=== PATIENT | male | born 1980 | race American Indian/Alaskan Native ===

== ENCOUNTER 2018-12-23 10:54 | Inpatient (IN) | payer MEDICARE ==
[2018-12-23] MEDS ORDERED: traMADol 50 MG TAB PO PRN (12:40)
[2018-12-24 05:58] LABS: Alanine Aminotransferase 15 units/L (7-56); Albumin 3.3 g/dL (3.9-5); BUN/Creatinine Ratio 16; Blood Urea Nitrogen 11 mg/dL (9-20); Calcium 8.8 mg/dL (8.4-10.2); Hemolysis Index 1
[2018-12-24 07:40] LABS: Hematocrit 36.9 % (35.5-45.6); Hemoglobin 12.4 gm/dl (11.8-15.2); Mean Corpuscular HGB Conc 34 % (32-34); Mean Corpuscular Volume 103 fl (84-94); Platelet Count 340 K/mm3 (140-440); Red Blood Count 3.57 M/mm3 (3.65-5.03); Red Cell Distribution Width 14.1 % (13.2-15.2)
[2018-12-24] MEDS: ASPIRIN EC 81 MG TAB PO SCH (08:39)
[2018-12-24] MEDS: allopurinoL 100 MG TAB PO SCH (08:39)
[2018-12-24] MEDS: ENOXAPARIN 40 MG/0.4 ML INJ SUB-Q SCH (08:39)
--- NOTE | 2018-12-24 11:55 | History and Physical Report ---
History of Present Illness Date: 12/24/18 Referring Facility: [facility] Referring physician: Pepe Sullivan MD Date of admission: 12/23/18 17:27 Chief Complaint: Congenital deformity of bilateral hips in a patient with Down syndrome status post bilateral hip pinning with advanced degenerative arthritis and now status post right total hip arthroplasty History of present illness: 38-year-old male with Down syndrome who has developmental dysplasia of the bilateral hips and underwent hip pinning procedure in the past. Due to the congenital defect along with degenerative joint disease patient developed worsening symptoms and has tried and failed other more conservative therapies to alleviate the pain and improve his functional ability to ambulate and perform ADLs. Outside XR showed severe degenerative disease of bilateral hips. He was evaluated for further surgical intervention and underwent a right total hip arthroplasty. He continues to have severe degenerative disease in the left hip which impairs his functional mobility and causes significant pain. Due to Down syndrome he is having a difficult time with following his posterior hip precautions as well as with retaining and following through with training. Previously he was going to an adult care center on a daily basis. Father states he has reduced his mobility and takes longer to walk places than he did in the past (likely due to pain). He was checking his GLU in the AM. Will obtain A1c and start monitoring / carb control diet if needed. Patient observed in therapy and appeared to be limited by pain. Due to communication issue and pain tolerance he has not asked for medication. Will schedule tramadol for pain control at breakfast and lunch. Will need to be persistent to ensure that he understands the correct form for exercises during therapy and pay close attention to cues of increased pain. Placement for acute rehab more appropriate than SNF due to increased need for monitoring patient and and increased amount of work for therapeutic gain which can be better accomplished in this setting than a lesser setting with a lower level of monitoring and staff. With continued care and pain control, we should be able to help him return closer to his premorbid condition and improve function. Past History Past Medical History: arthritis, other (Down syndrome, bilateral hip dysplasia, gout) Past Surgical History: Other (pinning of bilateral hips, right total hip arthroplasty) Social history: no significant social history, lives with family, full code. denies: smoking, alcohol abuse, prescription drug abuse Family history: diabetes, hypertension Medications and Allergies Allergies Allergy/AdvReac Type Severity Reaction Status Date / Time No Known Allergies Allergy Unverified 12/23/18 12:48 Home Medications Medication Instructions Recorded Confirmed Last Taken Type Allopurinol 100 mg PO DAILY 12/24/18 12/24/18 12/23/18 History Active Meds: Active Medications Allopurinol (Zyloprim) 100 mg PO QDAY [facility] Last Admin: 12/24/18 08:39 Dose: 100 mg Documented by: Aspirin (Halfprin Ec) 81 mg PO QDAY [facility] Last Admin: 12/24/18 08:39 Dose: 81 mg Documented by: Enoxaparin Sodium (Enoxaparin) 40 mg SUB-Q QDAY [facility] Last Admin: 12/24/18 08:39 Dose: 40 mg Documented by: Tramadol HCl (Ultram) 50 mg PO Q4H PRN PRN Reason: Pain, Moderate (4-6) Last Admin: 12/24/18 03:44 Dose: 50 mg Documented by: Review of Systems All systems: negative (ROS negative for 12 systems except as noted below with pertinent positives and negatives. Review of systems confirm with father in the room.) Constitutional: weight gain, fatigue Ears, nose, mouth and throat: no decreased hearing Cardiovascular: no chest pain, no high blood pressure Respiratory: no cough, no shortness of breath Gastrointestinal: no abdominal pain, no nausea, no vomiting, no diarrhea, no constipation Musculoskeletal: gait dysfunction, arthritis Integumentary: other (surgical wound), no rash, no pruritis, no redness Neurological: other (Down Syndrome) Exam - Exam Narrative exam: MUSCULOSKELETAL SPECIALTY EXAM CONSTITUTIONAL: Well developed, well nourished, appropriately groomed, Down syndrome, obese LYMPHATIC: No appreciable abnormalities palpable in neck EENT: EOMI. Oropharynx clear. Hearing intact to soft voice RESPIRATORY: Clear to auscultation bilaterally, no increased work of breathing CARDIOVASCULAR: Regular Rate/ Rhythm, no swelling, edema or tenderness in BUE or BLE. Pulses palpable in all extremities. All extremities warm. GI: + bowel sounds, soft, NTTP, nondistended. INTEGUMENTARY: Normal, no lesion, rash, masses or bruising noted in extremities. Surgical wound RLE MUSCULOSKELETAL: BUE and BLE normal without defect, crepitus, subluxation, effusion, arthritic changes or TTP. HIP arthritis with increased pain BUE 4+/5, good ROM, with normal tone. BLE 4+/5 good ROM, with normal tone NEURO: CN 2-12 grossly intact. Sensation intact in all extremities. Reflexes 2+ bilaterally at biceps, brachioradialis and patella. No clonus at ankles. Coordination intact in BUE. No tremor noted in 4 extremities. POSTURE and GAIT: Sitting posture good. Balance appears reasonable. Gait deferred until seen with therapy. PSYCH: Alert, decreased verbal communication secondary to Down syndrome, affect appears normal. Cognitive delay due to Down syndrome, decreased command following. - Constitutional Vitals: Vital Signs - 12hr 12/24/18 12/24/18 12/24/18 00:11 04:44 07:23 Temperature 37.2 C 36.9 C 36.5 C Pulse Rate 112 H 109 H 101 H Respiratory 17 17 18 Rate Blood Pressure 118/65 114/68 112/67 O2 Sat by Pulse 95 92 97 Oximetry - Labs CBC & Chem 7: 12/24/18 07:09 12/24/18 04:24 Labs: Laboratory Results - last 72 hr 12/24/18 12/24/18 04:24 07:09 WBC 6.8 RBC 3.57 L Hgb 12.4 Hct 36.9 MCV 103 H MCH 35 H MCHC 34 RDW 14.1 Plt Count 340 Sodium 138 Potassium 4.3 Chloride 100.9 Carbon Dioxide 23 Anion Gap 18 BUN 11 Creatinine 0.7 L Estimated GFR > 60 BUN/Creatinine Ratio 16 Glucose 139 H Calcium 8.8 Total Bilirubin 0.50 AST 22 ALT 15 Alkaline Phosphatase 50 Total Protein 7.8 Albumin 3.3 L Albumin/Globulin Ratio 0.7 Assessment and Plan Assessment and plan: Patient was assessed and evaluated for Acute Inpatient Rehab Unit. Due to the patients above-mentioned medical complexity, along with decreased functional mobility and self care, this patient continues to require and be appropriate for a comprehensive, multidisciplinary [id number] rehabilitation program. These needs cannot be met in an outpatient or other less intensive setting. The patient would continue to benefit from skilled therapy intervention for at least 3 hours per day, five days a week, with techniques specific to the needs of the patient to improve function, activities of daily living, and reintegration into the community. The patient continues to require: -- OT to improve ROM, self-care, and learn use of adaptive equipment -- PT to improve strength and balance, functional transfers, and ambulation with energy conservation techniques to improve functional mobility -- 24 hour RN to ensure and prevent skin breakdown, promote progressive independence while ensuring safety, ensure education regarding medications, and incorporation of the rehabilitation at the bedside -- 24 hour Wall Crane Operator to coordinate this interdisciplinary program, and to manage/prevent complications as a result of the patients medical comorbidities. -Plan of care by day 4 -Weekly team conferences With such a program, there is a reasonable certainty that the goals individualized for this patient can be achieved within the specified length of stay. 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 Has progressed and failed other more conservative efforts to control his pain as well as progressive degenerative changes and is to undergo staged total hip replacements starting with the right which is been done this hospitalization. Arthritis left hip: Continues and does cause pain. We'll continue pain control as well as therapy to improve functional transfers and ambulation until he can undergo second stage of bilateral total hip arthroplasty. Gout: Continue medication monitor for any signs of acute flareup and treat accordingly. s/p Right total hip replacement: Continue pain control and DVT prophylaxis. Monitor wounds for any signs of infection. Dressing changes as ordered and when necessary. Continue therapy to improve the ability to ambulate with existing arthritis and left hip and new total hip arthroplasty on right. Weightbearing as tolerated. Posterior hip precautions Downs Syndrome: Continue working with patient regarding medication issues. Condition complicates care and carry over. Patiently continue to guide patient to understand precautions and exercises to improve functional gain. Z73.6 ADL dysfunction: OT will work on improving ability to perform ADLs (including assistive devices) to increase independence and decrease caregiver burden and improve functional transfers and mobility training. R26.2 Difficulty walking: PT will work on gait training and proper use of assistive devices and advance as appropriate to use of stairs and outside ambulation on uneven surfaces. R26.81 Unsteadiness on feet: PT will work on improving static and dynamic si tting and standing balance as well as proper use of assistive devices to decrease risk of falls. R26.89 Abnormality of gait: PT will work to improve safety and efficiency of gait through neuromotor training and gait training along with instruction on proper use of assistive devices. M62.81 Muscle weakness: PT & OT will work on strengthening exercises to improve functional strength including mixture of closed and open kinetic chain exercises. R53.81 Debility: PT & OT will work on improving overall functional status to improve participation with ADLs, mobility and social involvement. R53.83 Fatigue: PT & OT will work on improving endurance through aerobic exercises and therapeutic activity while monitoring patients tolerance for activity and vital signs as needed. DVT ppx: lovenox x4wks Pain: Continue physical modalities in therapy and pain medications as needed to achieve functional pain control. Sleep: Monitor and address as needed. Bowel: Monitor and address as needed. Miralax prn Appetite: Monitor and address as needed. Discharge planning: Pending therapy progress and care plan meeting. Will continue discussion with therapy team, SW, patient and family. Restrictions/ Precautions: Falls, posterior hip precautions, cognitive delay secondary to Down syndrome WB status: Weightbearing as tolerated Functional Hx: ADLs: Independent Cognition: Independent Mobility: No AD Barriers to Discharge: Decreased mobility and ability to perform self care, balance deficits, weakness Estimated Length of Stay: 10-14 days Discharge Destination: Home with family POST ADMISSION PHYSICIAN EVALUATION I have examined the patient and find that functional status, medical condition and appropriateness for IRF admission are essentially unchanged from those described in the preadmission screening. Will monitor for worsening pain, functional decline, surgical site infection, DVT/PE, bowel and bladder complications and complications due to gout and electrolyte abnormalities. Will attempt to avoid occurrence of these issues or treat them if they present themselves.
[2018-12-24] MEDS: traMADol 50 MG TAB PO PRN ×2 (13:23→21:54)
[2018-12-24] MEDS ORDERED: POLYETHYLENE GLYCOL 3350 17 GM POWDER PO PRN (15:30)
[2018-12-25] MEDS: ASPIRIN EC 81 MG TAB PO SCH (08:41)
[2018-12-25] MEDS: traMADol 50 MG TAB PO SCH ×2 (08:41→13:19)
[2018-12-25] MEDS: ENOXAPARIN 40 MG/0.4 ML INJ SUB-Q SCH (08:42)
[2018-12-25] MEDS: allopurinoL 100 MG TAB PO SCH (08:42)
[2018-12-26] MEDS: traMADol 50 MG TAB PO SCH ×2 (09:40→15:25)
[2018-12-26] MEDS: ASPIRIN EC 81 MG TAB PO SCH (09:40)
[2018-12-26] MEDS: allopurinoL 100 MG TAB PO SCH (09:41)
[2018-12-26] MEDS: ENOXAPARIN 40 MG/0.4 ML INJ SUB-Q SCH (09:42)
--- NOTE | 2018-12-26 19:17 | IRU Plan of Care ---
Interdisciplinary Plan of Care - IP IRU INTERDISCIPLINARY PLAN: [facility] Inpatient Rehab Unit Plan of Care IRU Interdisciplinary Care Plan Start: 12/23/18 18:05 Freq: Admission then PRN Status: Active Protocol: Document 12/26/18 08:23 TH (Rec: 12/26/18 08:30 TH [id number]) Interdisciplinary Problem List Interdisciplinary Problem List Interdisciplinary Problem List Impaired Bathing/Grooming, Query Text:Answers will Trigger Problems Impaired Dressing,Impaired and Outcomes on Worklist. Mobility,Impaired Transfers, Impaired Toileting,Impaired Comprehension,Impaired Expression,Impaired Problem Solving,Impaired Memory,Pain Management,Knowledge Deficits, Impaired Skin/Tissue Integrity ,Impaired Social Interaction, Community Reintergration, Impaired Safety IRU Interdisciplinary Care Plan Therapy Services Therapy Services Will Include: Physical Therapy,Occupational Query Text:Patient will be seen for a Therapy minimum of 3 hours of daily therapy 5 out of 7 days a week. Therapy intensity may be adjusted within a 7 consecutive day period to effectively serve the individual needs of the patient. Treatment Frequency/Intensity/Duration Treatment Frequency 5x/week Treatment Intensity 3 hours per day Treatment Duration 14-18 days Problem Area: Eating/Swallowing Eating/Swallowing Outcomes Eating/Swallowing Interventions Problem Area: Bathing/Grooming Bathing/Grooming Outcomes Improve [place] w/ Grooming,Improve [place] w/ Bathing Bathing/Grooming Interventions ADL Training,Use of Assistive Devices,Therapeutic Exercise, Therapeutic Activity, Neuromuscular Re-Education, Balance Work,Activity Tolerance Work,Patient/ Caregiver Education Problem Area: Dressing Dressing Outcomes Improve [place] w/ UB Dressing,Improve [place] w/ LB Dressing Dressing Interventions ADL Training,Use of Assistive Devices,Neuromuscular Re- Education,Therapeutic Exercise ,Balance Work,Modalities, Patient/Caregiver Education Problem Area: Mobility Mobility Outcomes Improve [place] w/ Bed Mobility,Improve [place] w/ Ambulation,Improve [place] w/ Stairs/Curb, Improve [place] w/ Wheelchair Mobility Interventions Therapeutic Exercise, Neuromuscular Re-Ed.,Activity Tolerance Work,Modalities,Use of Assistive Devices,Patient/ Caregiver Education,Bed Mobility Work,Household Mobility Work Problem Area: Transfers Transfers Outcomes Improve [place] w/ Bed Transfers,Improve [place] w/ Toilet Transfers,Improve [place] w/ Tub/Shower Transfers,Improve [place] w/ Car Transfers Transfers Interventions Transfer Training,Therapeutic Exercise,Visual/Perceptual Training,Activity Tolerance Work,Use of Assistive Devices, Patient/Caregiver Education Problem Area: Bowel/Bladder Managment Bowel/Bladder Outcomes Bowel/Bladder Interventions Problem Area: Toileting Toileting Outcomes Improve [place] w/ Toileting Toileting Interventions ADL Training,Balance Work,Use of Assistive Devices,Patient/ Caregiver Education Problem Area: Nutrition Nutrition Outcomes Nutrition Interventions Problem Area: Comprehension Comprehension Outcomes Follow Commands Comprehension Interventions Use of Gestures,Patient/ Caregiver Education Problem Area: Expression Expression Outcomes Expression Interventions Problem Area: Problem Solving Problem Solving Outcomes Improve Problem Solving Problem Solving Interventions Safety Education,Patient/ Caregiver Education Problem Area: Memory Memory Outcomes Memory Interventions Problem Area: Pain Management Pain Management Outcomes Demonstrate/Verbalize Pain Strategies Pain Management Interventions Medication Management,Patient/ Caregiver Education Problem Area: Knowledge Deficits Knowledge Deficits Outcomes Knowledge Deficits Interventions Problem Area: Skin/Tissue Integrity Skin/Tissue Integrity Outcomes Exhibit Healing of Wound/ Incision Skin/Tissue Integrity Interventions Skin/Wound Care Problem Area: Social Interaction Social Interaction Outcomes Social Interaction Interventions Problem Area: Adjustment to Disability Adjustment to Disability Outcomes Adjustment to Disability Interventions Problem Area: Discharge Concerns Discharge Concerns Outcomes Discharge w/ Necessary Equipment,Have Home Health/ Outpatient Services Discharge Concerns Interventions Problem Area: Community Reintegration Community Reintegration Outcomes Community Reintegration Interventions Problem Area: Home Management Home Management Outcomes Improve [place] w/ Home Management Home Management Interventions Meal Preparation,Clothing Care ,Activity Tolerance Work, Leisure Skills Development, House Cleaning,Patient/ Caregiver Education Problem Area: Safety Safety Outcomes Provide Safe Environment, Perform Selfcare Safely, Demonstrate Good Safety w/ Transfers/Mobility Safety Interventions Identify Fall Risk,[place] Pt. to Environment,Reduce Environmental Hazards Problem Area: Medication Education Medication Education Outcomes Medication Education Interventions Problem Area: Diabetes Education Diabetes Education Outcomes Diabetes Education Interventions Problem Area: Oxygenation Oxygenation Outcomes Oxygenation Interventions Problem Area: Cardiovascular Cardiovascular Outcomes Cardiovascular Interventions Physician Only Medical Prognosis and Rehabilitation Potential (Completed by Physician) Patient has good prognosis and good rehab potential. Condition is complicated by continued L hip issues which will be addressed during a future surgical repair. Also complicate by Downs Syndrome and cognitive deficits. Will continue to push him to improve and regain function. This plan of care has been developed based on the findings from the pre- admission assessment, post admission physician evaluation, information gathered from the assessments from all therapy disciplines and other pertinent clinicians. The plan of care has been reviewed and discussed in collaboration with the interdisciplinary team. The plan of care will be reviewed and updated at least weekly.
[2018-12-27] MEDS: ASPIRIN EC 81 MG TAB PO SCH (08:22)
[2018-12-27] MEDS: traMADol 50 MG TAB PO SCH ×3 (08:22→23:03)
[2018-12-27] MEDS: allopurinoL 100 MG TAB PO SCH (08:23)
[2018-12-27] MEDS: ENOXAPARIN 40 MG/0.4 ML INJ SUB-Q SCH (08:23)
--- NOTE | 2018-12-27 09:31 | XRay Report ---
XR hips BILAT 2V w/pelvis INDICATION / CLINICAL INFORMATION: Hip pain after fall, recent hip surgery. COMPARISON: None available. FINDINGS: BONES/JOINT(S): No acute fracture or subluxation. There are postsurgical changes from previous right total hip arthroplasty and core decompression of the left proximal femur, presumably for osteonecrosi s. There is advanced DJD in the left with near-complete joint space loss superiorly, marginal ossifie d formation, and bone remodeling in the femoral head and acetabulum. SOFT TISSUES: The visualized right thigh demonstrate significant soft tissue edema without additional significant abnormality. ADDITIONAL FINDINGS: None. Signer Name: Madan Brooks MD Signed: 12/27/2018 9:27 AM Workstation Name: [id number]
--- NOTE | 2018-12-27 10:46 | Progress Note ---
Subjective Date of service: 12/27/18 Principal diagnosis: Congenital deformity of bilateral hips in a patient with Down syndrome stat Interval history: 38-year-old male with Down syndrome who has developmental dysplasia of the bilateral hips and underwent hip pinning procedure in the past. Due to the congenital defect along with degenerative joint disease patient developed worsening symptoms and has tried and failed other more conservative therapies to alleviate the pain and improve his functional ability to ambulate and perform ADLs. Outside XR showed severe degenerative disease of bilateral hips. He was evaluated for further surgical intervention and underwent a right total hip art hroplasty. He continues to have severe degenerative disease in the left hip which impairs his functional mobility and causes significant pain. Due to Down syndrome he is having a difficult time with following his posterior hip precautions as well as with retaining and following through with training. Previously he was going to an adult care center on a daily basis. Father states he has reduced his mobility and takes longer to walk places than he did in the past (likely due to pain). He was checking his GLU in the AM. Will obtain A1c and start monitoring / carb control diet if needed. Patient observed in therapy and appeared to be limited by pain. Due to communication issue and pain t olerance he has not asked for medication. Will schedule tramadol for pain control at breakfast and lunch. Will need to be persistent to ensure that he understands the correct form for exercises during therapy and pay close attention to cues of increased pain. Placement for acute rehab more appropriate than SNF due to increased need for monitoring patient and and increased amount of work for therapeutic gain which can be better accomplished in this setting than a lesser setting with a lower level of monitoring and staff. With continued care and pain control, we should be able to help him return closer to his premorbid condition and improve function. Patient is participating at times in therapy and making slow progress. Taking rest breaks as needed. -BM. Denies pain, palpitations, dyspnea, cough, N/V, weakness. Patient does have pain which is evident by watching the appearance of grimaces on his face. Was notified by nursing early this morning that the patient did not sleep well all weekend. Also informed that family was not with the patient at all times as we had initially been legibly. Apparently the patient is not participating as well as we would like with therapy but we will continue to see what kind of progress we can make over the next couple of days. I was informed the patient ended up not technically falling but was lowered to the ground by nursing. Obtained x-rays of the hips just to ensure that there was no damage done. Hips images as well as reports have been reviewed and no displacement of hardware seen. I am seeing issues with the when necessary medicationsthey apparently are not being given even though they are needed because the patient is unable to ask for them. K some point patient has not had a bowel movement during his time with us however he has not been given a single dose of MiraLAX. At this point I will change medications to scheduled with hold orders as well. And also order something to help the patient sleep. Reminded nursing that we absolutely need to watch the patient carefully and anytime he is in the bed and a chair are the wheelchair would need to have a alarm set so that we will know if he is attempting to get up. All records, vitals, labs and medications were reviewed. No other issues per patient, nursing or therapy. Objective - Exam Narrative Exam: MUSCULOSKELETAL SPECIALTY EXAM CONSTITUTIONAL: Well developed, well nourished, appropriately groomed, Down syndrome, obese EENT: EOMI. Hearing intact to soft voice RESPIRATORY: Clear to auscultation bilaterally, no increased work of breathing CARDIOVASCULAR: Regular Rate/ Rhythm, no swelling, edema or tenderness in BUE or BLE. All extremities warm. GI: + bowel sounds, soft, NTTP, nondistended. INTEGUMENTARY: Normal, no lesion, rash, masses or bruising noted in extremities. Surgical wound RLE MUSCULOSKELETAL: BUE and BLE normal without defect, crepitus, subluxation, effusion, arthritic changes or TTP. HIP arthritis with increased pain BUE 4+/5, good ROM, with normal tone. BLE 4+/5 good ROM, with normal tone NEURO: CN 2-12 grossly intact. Sensation intact in all extremities. No tremor noted in 4 extremities. POSTURE and GAIT: Sitting posture good. Balance appears reasonable. Gait deferred until seen with therapy. PSYCH: Alert, decreased verbal communication secondary to Down syndrome, affect appears normal. Cognitive delay due to Down syndrome, decreased command following. - Constitutional Vitals: Vital Signs - 12hr 12/26/18 12/26/18 12/27/18 23:36 23:42 05:07 Temperature 37.1 C Pulse Rate 110 H 72 124 H Respiratory 17 Rate Blood Pressure 114/58 Blood Pressure [Right] O2 Sat by Pulse 92 100 93 Oximetry 12/27/18 12/27/18 07:00 07:22 Temperature 36.3 C L 36.3 C L Pulse Rate 114 H 121 H Respiratory 16 16 Rate Blood Pressure 112/64 Blood Pressure 112/64 [Right] O2 Sat by Pulse 96 93 Oximetry - Allied health notes Allied health notes reviewed: nursing, PT, OT FIMS assessment as documented by PT/OT/ST: Locomotion- walk/wheelchair Ambulation Distance 17 - Labs CBC & Chem 7: 12/24/18 07:09 12/24/18 04:24 Labs: Laboratory Results - last 72 hr 12/25/18 12/25/18 06:28 21:45 POC Glucose 130 H Hemoglobin A1c 6.2 H Assessment and Plan 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 Has progressed and failed other more conservative efforts to control his pain as well as progressive degenerative changes and is to undergo staged total hip replacements starting with the right which is been done this hospitalization. Arthritis left hip: Continues and does cause pain. We'll continue pain control as well as therapy to improve functional transfers and ambulation until he can undergo second stage of bilateral total hip arthroplasty. Gout: Continue medication monitor for any signs of acute flareup and treat accordingly. s/p Right total hip replacement: Continue pain control and DVT prophylaxis. Monitor wounds for any signs of infection. Dressing changes as ordered and when necessary. Continue therapy to improve the ability to ambulate with existing arthritis and left hip and new total hip arthroplasty on right. Weightbearing as tolerated. Posterior hip precautions Downs Syndrome: Continue working with patient regarding medication issues. Condition complicates care and carry over. Patiently continue to guide patient to understand precautions and exercises to improve functional gain. Z73.6 ADL dysfunction: OT will work on improving ability to perform ADLs (including assistive devices) to increase independence and decrease caregiver burden and improve functional transfers and mobility training. R26.2 Difficulty walking: PT will work on gait training and proper use of assistive devices and advance as appropriate to use of stairs and outside ambulation on uneven surfaces. R26.81 Unsteadiness on feet: PT will work on improving static and dynamic sit ting and standing balance as well as proper use of assistive devices to decrease risk of falls. R26.89 Abnormality of gait: PT will work to improve safety and efficiency of gait through neuromotor training and gait training along with instruction on proper use of assistive devices. M62.81 Muscle weakness: PT & OT will work on strengthening exercises to improve functional strength including mixture of closed and open kinetic chain exercises. R53.81 Debility: PT & OT will work on improving overall functional status to improve participation with ADLs, mobility and social involvement. R53.83 Fatigue: PT & OT will work on improving endurance through aerobic exercises and therapeutic activity while monitoring patients tolerance for activity and vital signs as needed. DVT ppx: lovenox x4wks Pain: Continue physical modalities in therapy and pain medications as needed to achieve functional pain control. Change scheduled dose to 3 times a day Sleep: Monitor and address as needed. Schedule trazodone Bowel: Monitor and address as needed. Schedule Miralax with appropriate hold order Appetite: Monitor and address as needed. Discharge planning: Pending therapy progress and care plan meeting. Will continue discussion with therapy team, SW, patient and family. Restrictions/ Precautions: Falls, posterior hip precautions, cognitive delay secondary to Down syndrome WB status: Weightbearing as tolerated Functional Hx: ADLs: Independent Cognition: Independent Mobility: No AD Barriers to Discharge: Decreased mobility and ability to perform self care, balance deficits, weakness Estimated Length of Stay: 10-14 days Discharge Destination: Home with family
[2018-12-27] MEDS: POLYETHYLENE GLYCOL 3350 17 GM POWDER PO SCH (14:21)
[2018-12-27] MEDS: traZODone 50 MG TAB PO SCH (23:03)
[2018-12-28] MEDS: allopurinoL 100 MG TAB PO SCH (08:33)
[2018-12-28] MEDS: traMADol 50 MG TAB PO SCH ×3 (08:33→21:24)
[2018-12-28] MEDS: ASPIRIN EC 81 MG TAB PO SCH (08:33)
[2018-12-28] MEDS: POLYETHYLENE GLYCOL 3350 17 GM POWDER PO SCH (08:33)
[2018-12-28] MEDS: ENOXAPARIN 40 MG/0.4 ML INJ SUB-Q SCH (08:34)
--- NOTE | 2018-12-28 15:41 | Progress Note ---
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 Due to the congenital defect along with degenerative joint disease patient developed worsening symptoms and has tried and failed other more conservative therapies to alleviate the pain and improve his functional ability to ambulate and perform ADLs. Outside XR showed severe degenerative disease of bilateral hips. He was evaluated for further surgical intervention and underwent a right total hip art hroplasty. He continues to have severe degenerative disease in the left hip which impairs his functional mobility and causes significant pain. Due to Down syndrome he is having a difficult time with following his posterior hip precautions as well as with retaining and following through with training. Previously he was going to an adult care center on a daily basis. Father states he has reduced his mobility and takes longer to walk places than he did in the past (likely due to pain). He was checking his GLU in the AM. Will obtain A1c and start monitoring / carb control diet if needed. Patient observed in therapy and appeared to be limited by pain. Due to communication issue and pain t olerance he has not asked for medication. Will schedule tramadol for pain control at breakfast and lunch. Will need to be persistent to ensure that he understands the correct form for exercises during therapy and pay close attention to cues of increased pain. Placement for acute rehab more appropriate than SNF due to increased need for monitoring patient and and increased amount of work for therapeutic gain which can be better accomplished in this setting than a lesser setting with a lower level of monitoring and staff. With continued care and pain control, we should be able to help him return closer to his premorbid condition and improve function. Patient is participating at times in therapy and making slow progress. Taking rest breaks as needed. -BM. Denies pain, palpitations, dyspnea, cough, N/V, weakness. Patient does have pain which is evident by watching the appearance of grimaces on his face but he denies it. Participation a little better today. Discussed isses with mother who was in room. Patient refusing to get into bed and remains in recliner. Reminded nursing that we absolutely need to watch the patient carefully and anytime he is in the bed and a chair are the wheelchair would need to have a alarm set so that we will know if he is attempting to get up. All records, vitals, labs and medications were reviewed. No other issues per patient, nursing or therapy. Objective - Exam Narrative Exam: MUSCULOSKELETAL SPECIALTY EXAM CONSTITUTIONAL: Well developed, well nourished, appropriately groomed, Down syndrome, obese EENT: EOMI. Hearing intact to soft voice RESPIRATORY: Clear to auscultation bilaterally, no increased work of breathing CARDIOVASCULAR: Regular Rate/ Rhythm, no swelling, edema or tenderness in BUE or BLE. All extremities warm. GI: + bowel sounds, soft, NTTP, nondistended. INTEGUMENTARY: Normal, no lesion, rash, masses or bruising noted in extremities. Surgical wound RLE MUSCULOSKELETAL: BUE and BLE normal without defect, crepitus, subluxation, effusion, arthritic changes or TTP. HIP arthritis with increased pain BUE 4+/5, good ROM, with normal tone. BLE 4+/5 good ROM, with normal tone NEURO: CN 2-12 grossly intact. Sensation intact in all extremities. No tremor noted in 4 extremities. POSTURE and GAIT: Sitting posture good. Balance appears reasonable. Gait deferred until seen with therapy. PSYCH: Alert, decreased verbal communication secondary to Down syndrome, affect appears normal. Cognitive delay due to Down syndrome, decreased command following. 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 Has progressed and failed other more conservative efforts to control his pain as well as progressive degenerative changes and is to undergo staged total hip replacements starting with the right which is been done this hospitalization. Arthritis left hip: Continues and does cause pain. We'll continue pain control as well as therapy to improve functional transfers and ambulation until he can undergo second stage of bilateral total hip arthroplasty. Gout: Continue medication monitor for any signs of acute flareup and treat accordingly. s/p Right total hip replacement: Continue pain control and DVT prophylaxis. Monitor wounds for any signs of infection. Dressing changes as ordered and when necessary. Continue therapy to improve the ability to ambulate with existing arthritis and left hip and new total hip arthroplasty on right. Weightbearing as tolerated. Posterior hip precautions Downs Syndrome: Continue working with patient regarding medication issues. Condition complicates care and carry over. Patiently continue to guide patient to understand precautions and exercises to improve functional gain. Z73.6 ADL dysfunction: OT will work on improving ability to perform ADLs (including assistive devices) to increase independence and decrease caregiver burden and improve functional transfers and mobility training. R26.2 Difficulty walking: PT will work on gait training and proper use of assistive devices and advance as appropriate to use of stairs and outside ambulation on uneven surfaces. R26.81 Unsteadiness on feet: PT will work on improving static and dynamic sitting and standing balance as well as proper use of assistive devices to decrease risk of falls. R26.89 Abnormality of gait: PT will work to improve safety and efficiency of gait through neuromotor training and gait training along with instruction on proper use of assistive devices. M62.81 Muscle weakness: PT & OT will work on strengthening exercises to improve functional strength including mixture of closed and open kinetic chain exercises. R53.81 Debility: PT & OT will work on improving overall functional status to improve participation with ADLs, mobility and social involvement. R53.83 Fatigue: PT & OT will work on improving endurance through aerobic exercises and therapeutic activity while monitoring patients tolerance for activity and vital signs as needed. DVT ppx: lovenox x4wks Pain: Continue physical modalities in therapy and pain medications as needed to achieve functional pain control. Change scheduled dose to 3 times a day Sleep: Monitor and address as needed. Schedule trazodone Bowel: Monitor and address as needed. Schedule Miralax with appropriate hold order Appetite: Monitor and address as needed. Discharge planning: Pending therapy progress and care plan meeting. Will continue discussion with therapy team, SW, patient and family. Restrictions/ Precautions: Falls, posterior hip precautions, cognitive delay secondary to Down syndrome WB status: Weightbearing as tolerated Functional Hx: ADLs: Independent Cognition: Independent Mobility: No AD Barriers to Discharge: Decreased mobility and ability to perform self care, balance deficits, weakness Estimated Length of Stay: 10-14 days Discharge Destination: Home with family
[2018-12-28] MEDS: traZODone 50 MG TAB PO SCH (21:25)
[2018-12-29 05:38] LABS: Hematocrit 35.1 % (35.5-45.6); Hemoglobin 11.5 gm/dl (11.8-15.2); Mean Corpuscular HGB Conc 33 % (32-34); Mean Corpuscular Volume 102 fl (84-94); Platelet Count 460 K/mm3 (140-440); Red Blood Count 3.43 M/mm3 (3.65-5.03); Red Cell Distribution Width 14.1 % (13.2-15.2)
[2018-12-29 05:50] LABS: BUN/Creatinine Ratio 16; Blood Urea Nitrogen 11 mg/dL (9-20); Calcium 8.6 mg/dL (8.4-10.2); Hemolysis Index 2
--- NOTE | 2018-12-29 07:50 | Progress Note ---
Subjective Date of service: 12/29/18 Principal diagnosis: Congenital deformity of bilateral hips in a patient with Down syndrome Interval history: 38-year-old male with Down syndrome who has developmental dysplasia of the bilateral hips and underwent hip pinning procedure in the past. Due to the congenital defect along with degenerative joint disease patient developed worsening symptoms and has tried and failed other more conservative therapies to alleviate the pain and improve his functional ability to ambulate and perform ADLs. Outside XR showed severe degenerative disease of bilateral hips. He was evaluated for further surgical intervention and underwent a right total hip arthroplasty. He continues to have severe degenerative disease in the left hip which impairs his functional mobility and causes significant pain. Due to Down syndrome he is having a difficult time with following his posterior hip precautions as well as with retaining and following through with training. Previously he was going to an adult care center on a daily basis. Father states he has reduced his mobility and takes longer to walk places than he did in the past (likely due to pain). He was checking his GLU in the AM. Will obtain A1c and start monitoring / carb control diet if needed. Patient observed in therapy and appeared to be limited by pain. Due to communication issue and pain mir ance he has not asked for medication. Will schedule tramadol for pain control at breakfast and lunch. Will need to be persistent to ensure that he understands the correct form for exercises during therapy and pay close attention to cues of increased pain. Placement for acute rehab more appropriate than SNF due to increased need for monitoring patient and and increased amount of work for therapeutic gain which can be better accomplished in this setting than a lesser setting with a lower level of monitoring and staff. With continued care and pain control, we should be able to help him return closer to his premorbid condition and improve function. Patient is participating at times in therapy and making slow progress. Taking rest breaks as needed. +BM. Slight decrease in Hgb. Denies palpitations, dyspnea, cough, N/V, weakness. Patient does have pain which is evident by watching the appearance of grimaces on his face but he denies it. Slept well last night. No issues from nursing. Encouraged him to participate in therapy. Patient refusing to get into bed and remains in recliner. Reminded nursing that we absolutely need to watch the patient carefully and anytime he is in the bed and a chair are the wheelchair would need to have a alarm set so that we will know if he is attempting to get up. All records, vitals, labs and medications were reviewed. No other issues per pa tient, nursing or therapy. Objective - Exam Narrative Exam: MUSCULOSKELETAL SPECIALTY EXAM CONSTITUTIONAL: Well developed, well nourished, appropriately groomed, Down syndrome, obese EENT: EOMI. Hearing intact to soft voice RESPIRATORY: Clear to auscultation bilaterally, no increased work of breathing CARDIOVASCULAR: Regular Rate/ Rhythm, no swelling, edema or tenderness in BUE or BLE. All extremities warm. GI: + bowel sounds, soft, NTTP, nondistended. INTEGUMENTARY: Normal, no lesion, rash, masses or bruising noted in extremities. Surgical wound RLE MUSCULOSKELETAL: BUE and BLE normal without defect, crepitus, subluxation, effusion, arthritic changes or TTP. HIP arthritis with increased pain BUE 4+/5, good ROM, with normal tone. BLE 4+/5 good ROM, with normal tone NEURO: CN 2-12 grossly intact. Sensation intact in all extremities. No tremor noted in 4 extremities. POSTURE and GAIT: Sitting posture good. Balance appears reasonable. Gait deferred until seen with therapy. PSYCH: Alert, decreased verbal communication secondary to Down syndrome, affect appears normal. Cognitive delay due to Down syndrome, decreased command following. - Constitutional Vitals: Vital Signs - 12hr 12/28/18 12/29/18 12/29/18 21:24 05:01 07:00 Temperature 36.6 C 36.6 C Pulse Rate 102 H 103 H Respiratory 18 17 19 Rate Blood Pressure 111/59 Blood Pressure 105/60 [Right] O2 Sat by Pulse 91 94 Oximetry - Allied health notes Allied health notes reviewed: nursing, PT, OT FIMS assessment as documented by PT/OT/ST: Locomotion- walk/wheelchair Ambulation Distance 17 - Labs CBC & Chem 7: 12/29/18 05:20 12/29/18 05:20 Labs: Laboratory Results - last 72 hr 12/29/18 12/29/18 05:20 05:20 WBC 5.9 RBC 3.43 L Hgb 11.5 L Hct 35.1 L MCV 102 H MCH 34 H MCHC 33 RDW 14.1 Plt Count 460 H Sodium 136 L Potassium 3.9 Chloride 99.0 Carbon Dioxide 25 Anion Gap 16 BUN 11 Creatinine 0.7 L Estimated GFR > 60 BUN/Creatinine Ratio 16 Glucose 121 H Calcium 8.6 Assessment and Plan 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 Has progressed and failed other more conservative efforts to control his pain as well as progressive degenerative changes and is to undergo staged total hip replacements starting with the right which is been done this hospitalization. Arthritis left hip: Continues and does cause pain. We'll continue pain control as well as therapy to improve functional transfers and ambulation until he can undergo second stage of bilateral total hip arthroplasty. Gout: Continue medication monitor for any signs of acute flareup and treat accordingly. s/p Right total hip replacement: Continue pain control and DVT prophylaxis. Monitor wounds for any signs of infection. Dressing changes as ordered and when necessary. Continue therapy to improve the ability to ambulate with existing arthritis and left hip and new total hip arthroplasty on right. Weightbearing as tolerated. Posterior hip precautions Downs Syndrome: Continue working with patient regarding medication issues. Condition complicates care and carry over. Patiently continue to guide patient to understand precautions and exercises to improve functional gain. Z73.6 ADL dysfunction: OT will work on improving ability to perform ADLs (including assistive devices) to increase independence and decrease caregiver burden and improve functional transfers and mobility training. R26.2 Difficulty walking: PT will work on gait training and proper use of assistive devices and advance as appropriate to use of stairs and outside ambulation on uneven surfaces. R26.81 Unsteadiness on feet: PT will work on improving static and dynamic sittin g and standing balance as well as proper use of assistive devices to decrease risk of falls. R26.89 Abnormality of gait: PT will work to improve safety and efficiency of gait through neuromotor training and gait training along with instruction on proper use of assistive devices. M62.81 Muscle weakness: PT & OT will work on strengthening exercises to improve functional strength including mixture of closed and open kinetic chain exercises. R53.81 Debility: PT & OT will work on improving overall functional status to improve participation with ADLs, mobility and social involvement. R53.83 Fatigue: PT & OT will work on improving endurance through aerobic exercises and therapeutic activity while monitoring patients tolerance for activity and vital signs as needed. DVT ppx: lovenox x4wks Pain: Continue physical modalities in therapy and pain medications as needed to achieve functional pain control. Change scheduled dose to 3 times a day Sleep: Monitor and address as needed. Schedule trazodone Bowel: Monitor and address as needed. Schedule Miralax with appropriate hold order Appetite: Monitor and address as needed. Discharge planning: Pending therapy progress and care plan meeting. Will continue discussion with therapy team, SW, patient and family. Restrictions/ Precautions: Falls, posterior hip precautions, cognitive delay secondary to Down syndrome WB status: Weightbearing as tolerated Functional Hx: ADLs: Independent Cognition: Independent Mobility: No AD Barriers to Discharge: Decreased mobility and ability to perform self care, balance deficits, weakness Estimated Length of Stay: 10-14 days Discharge Destination: Home with family
[2018-12-29] MEDS: allopurinoL 100 MG TAB PO SCH (09:10)
[2018-12-29] MEDS: ASPIRIN EC 81 MG TAB PO SCH (09:10)
[2018-12-29] MEDS: ENOXAPARIN 40 MG/0.4 ML INJ SUB-Q SCH (09:10)
[2018-12-29] MEDS: traMADol 50 MG TAB PO SCH ×3 (09:10→22:00)
[2018-12-29] MEDS: POLYETHYLENE GLYCOL 3350 17 GM POWDER PO SCH (09:19)
[2018-12-29] MEDS: traZODone 50 MG TAB PO SCH (22:51)
[2018-12-30] MEDS: allopurinoL 100 MG TAB PO SCH (09:11)
[2018-12-30] MEDS: ENOXAPARIN 40 MG/0.4 ML INJ SUB-Q SCH (09:11)
[2018-12-30] MEDS: POLYETHYLENE GLYCOL 3350 17 GM POWDER PO SCH (09:11)
[2018-12-30] MEDS: ASPIRIN EC 81 MG TAB PO SCH (09:11)
[2018-12-30] MEDS: traMADol 50 MG TAB PO SCH ×3 (09:11→22:49)
--- NOTE | 2018-12-30 13:15 | Progress Note ---
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 Due to the congenital defect along with degenerative joint disease patient developed worsening symptoms and has tried and failed other more conservative therapies to alleviate the pain and improve his functional ability to ambulate and perform ADLs. Outside XR showed severe degenerative disease of bilateral hips. He was evaluated for further surgical intervention and underwent a right total hip arthroplasty. He continues to have severe degenerative disease in the left hip which impairs his functional mobility and causes significant pain. Due to Down syndrome he is having a difficult time with following his posterior hip precautions as well as with retaining and following through with training. Previously he was going to an adult care center on a daily basis. Father states he has reduced his mobility and takes longer to walk places than he did in the past (likely due to pain). He was checking his GLU in the AM. Will obtain A1c and start monitoring / carb control diet if needed. Patient observed in therapy and appeared to be limited by pain. Due to communication issue and pain mir ance he has not asked for medication. Will schedule tramadol for pain control at breakfast and lunch. Will need to be persistent to ensure that he understands the correct form for exercises during therapy and pay close attention to cues of increased pain. Placement for acute rehab more appropriate than SNF due to increased need for monitoring patient and and increased amount of work for therapeutic gain which can be better accomplished in this setting than a lesser setting with a lower level of monitoring and staff. With continued care and pain control, we should be able to help him return closer to his premorbid condition and improve function. Patient is participating at times in therapy and making slow progress. Taking rest breaks as needed. -BM. Denies palpitations, dyspnea, cough, N/V, weakness. Pain seems fairly well controlled however there are some concerns with oversedation. Patient is not obtunded but does appear drowsy at times. Uncertain how well he is sleeping at night but seem to be getting good reports from Center and from nursing that he is sleeping well. Due to this we will decrease the tramadol to 25 mg 3 times a day and monitor to see if this improves his wakefulness and ability to participate. No other issues from nursing. Encouraged him to participate in therapy. Patient refusing to get into bed and remains in recliner. Reminded nursing that we absolutely need to watch the patient carefully and anytime he is in the bed and a chair are the wheelchair would need to have a alarm set so that we will know if he is attempting to get up. Discussed during team conference. Patient is improving with his participation and ability to perform rehabilitation past. Ambulating further distances with PT utilizing a rolling walker with no major loss of balance. Unable to traverse stairs yet. Doing fairly well with ADLs and will continue to work towards goals with that as well. Feel like he is getting close to baseline and will continue to work with mobility in order to improve his functional recovery. Look to discharge next Thursday. All records, vitals, labs and medications were reviewed. No other issues per patient, nursing or therapy. Objective - Exam Narrative Exam: MUSCULOSKELETAL SPECIALTY EXAM CONSTITUTIONAL: Well developed, well nourished, appropriately groomed, Down syndrome, obese EENT: EOMI. Hearing intact to soft voice RESPIRATORY: Clear to auscultation bilaterally, no increased work of breathing CARDIOVASCULAR: Regular Rate/ Rhythm, no swelling, edema or tenderness in BUE or BLE. All extremities warm. GI: + bowel sounds, soft, NTTP, nondistended. INTEGUMENTARY: Normal, no lesion, rash, masses or bruising noted in extremities. Surgical wound RLE MUSCULOSKELETAL: BUE and BLE normal without defect, crepitus, subluxation, effusion, arthritic changes or TTP. HIP arthritis with increased pain BUE 4+/5, good ROM, with normal tone. BLE 4+/5 good ROM, with normal tone NEURO: CN 2-12 grossly intact. Sensation intact in all extremities. No tremor noted in 4 extremities. POSTURE and GAIT: Sitting posture good. Balance appears reasonable. Gait deferred until seen with therapy. PSYCH: Alert, decreased verbal communication secondary to Down syndrome, affect appears normal. Cognitive delay due to Down syndrome, decreased command following. - Constitutional Vitals: Vital Signs - 12hr 12/30/18 12/30/18 12/30/18 05:24 05:26 07:20 Temperature 36.5 C 37.1 C Pulse Rate 95 H 95 H Pulse Rate [ Apical] Respiratory 19 Rate Blood Pressure 105/55 Blood Pressure 91/65 [Right] O2 Sat by Pulse 89 92 Oximetry 12/30/18 12/30/18 09:18 12:06 Temperature 36.7 C Pulse Rate 92 H Pulse Rate [ 95 H Apical] Respiratory 18 Rate Blood Pressure 110/48 Blood Pressure [Right] O2 Sat by Pulse 95 Oximetry - Allied health notes Allied health notes reviewed: nursing, PT, OT FIMS assessment as documented by PT/OT/ST: Locomotion- walk/wheelchair Ambulation Distance 17 - Labs CBC & Chem 7: 12/29/18 05:20 12/29/18 05:20 Labs: Laboratory Results - last 72 hr 12/29/18 12/29/18 05:20 05:20 WBC 5.9 RBC 3.43 L Hgb 11.5 L Hct 35.1 L MCV 102 H MCH 34 H MCHC 33 RDW 14.1 Plt Count 460 H Sodium 136 L Potassium 3.9 Chloride 99.0 Carbon Dioxide 25 Anion Gap 16 BUN 11 Creatinine 0.7 L Estimated GFR > 60 BUN/Creatinine Ratio 16 Glucose 121 H Calcium 8.6 Assessment and Plan 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 Has progressed and failed other more conservative efforts to control his pain as well as progressive degenerative changes and is to undergo staged total hip replacements starting with the right which is been done this hospitalization. Arthritis left hip: Continues and does cause pain. We'll continue pain control as well as therapy to improve functional transfers and ambulation until he can undergo second stage of bilateral total hip arthroplasty. Gout: Continue medication monitor for any signs of acute flareup and treat accordingly. s/p Right total hip replacement: Continue pain control and DVT prophylaxis. Monitor wounds for any signs of infection. Dressing changes as ordered and when necessary. Continue therapy to improve the ability to ambulate with existing arthritis and left hip and new total hip arthroplasty on right. Weightbearing as tolerated. Posterior hip precautions Downs Syndrome: Continue working with patient regarding medication issues. Condition complicates care and carry over. Patiently continue to guide patient to understand precautions and exercises to improve functional gain. Z73.6 ADL dysfunction: OT will work on improving ability to perform ADLs (including assistive devices) to increase independence and decrease caregiver burden and improve functional transfers and mobility training. R26.2 Difficulty walking: PT will work on gait training and proper use of assistive devices and advance as appropriate to use of stairs and outside ambulation on uneven surfaces. R26.81 Unsteadiness on feet: PT will work on improving static and dynamic sitting and standing balance as well as proper use of assistive devices to decre ase risk of falls. R26.89 Abnormality of gait: PT will work to improve safety and efficiency of gait through neuromotor training and gait training along with instruction on proper use of assistive devices. M62.81 Muscle weakness: PT & OT will work on strengthening exercises to improve functional strength including mixture of closed and open kinetic chain exercises. R53.81 Debility: PT & OT will work on improving overall functional status to improve participation with ADLs, mobility and social involvement. R53.83 Fatigue: PT & OT will work on improving endurance through aerobic exercises and therapeutic activity while monitoring patients tolerance for activity and vital signs as needed. DVT ppx: lovenox x4wks Pain: Continue physical modalities in therapy and pain medications as needed to achieve functional pain control. Decrease scheduled tramadol dose Sleep: Monitor and address as needed. Schedule trazodone Bowel: Monitor and address as needed. Schedule Miralax with appropriate hold order Appetite: Monitor and address as needed. Discharge planning: Pending therapy progress and care plan meeting. Will continue discussion with therapy team, SW, patient and family. Look to dis charge on Friday 01/05 Restrictions/ Precautions: Falls, posterior hip precautions, cognitive delay secondary to Down syndrome WB status: Weightbearing as tolerated Functional Hx: ADLs: Independent Cognition: Independent Mobility: No AD Barriers to Discharge: Decreased mobility and ability to perform self care, balance deficits, weakness Estimated Length of Stay: 10-14 days Discharge Destination: Home with family
[2018-12-30] MEDS: traZODone 50 MG TAB PO SCH (22:47)
[2018-12-31] MEDS: ENOXAPARIN 40 MG/0.4 ML INJ SUB-Q SCH (08:33)
[2018-12-31] MEDS: ASPIRIN EC 81 MG TAB PO SCH (08:33)
[2018-12-31] MEDS: POLYETHYLENE GLYCOL 3350 17 GM POWDER PO SCH (08:33)
[2018-12-31] MEDS: allopurinoL 100 MG TAB PO SCH (08:34)
[2018-12-31] MEDS: traMADol 50 MG TAB PO SCH ×3 (08:34→21:45)
--- NOTE | 2018-12-31 11:38 | Progress Note ---
Subjective Date of service: 12/31/18 Principal diagnosis: Congenital deformity of bilateral hips in a patient with Down syndrome Interval history: 38-year-old male with Down syndrome who has developmental dysplasia of the bilateral hips and underwent hip pinning procedure in the past. Due to the congenital defect along with degenerative joint disease patient developed worsening symptoms and has tried and failed other more conservative therapies to alleviate the pain and improve his functional ability to ambulate and perform ADLs. Outside XR showed severe degenerative disease of bilateral hips. He was evaluated for further surgical intervention and underwent a right total hip arthroplasty. He continues to have severe degenerative disease in the left hip which impairs his functional mobility and causes significant pain. Due to Down syndrome he is having a difficult time with following his posterior hip precautions as well as with retaining and following through with training. Previously he was going to an adult care center on a daily basis. Father states he has reduced his mobility and takes longer to walk places than he did in the past (likely due to pain). He was checking his GLU in the AM. Will obtain A1c and start monitoring / carb control diet if needed. Patient observed in therapy and appeared to be limited by pain. Due to communication issue and pain mir ance he has not asked for medication. Will schedule tramadol for pain control at breakfast and lunch. Will need to be persistent to ensure that he understands the correct form for exercises during therapy and pay close attention to cues of increased pain. Placement for acute rehab more appropriate than SNF due to increased need for monitoring patient and and increased amount of work for therapeutic gain which can be better accomplished in this setting than a lesser setting with a lower level of monitoring and staff. With continued care and pain control, we should be able to help him return closer to his premorbid condition and improve function. Patient is participating at times in therapy and making slow progress. Taking rest breaks as needed. +BM. Denies palpitations, dyspnea, cough, N/V, weakness. Pain seems fairly well controlled. Patient is not obtunded but does appear drowsy at times. Refused therapy this AM, will need to have him participate this afternoon. Mixed reports on sleep last night. No other issues from nursing. Encouraged him to participate in therapy. Patient refusing to get into bed and remains in recliner. Reminded nursing that we absolutely need to watch the patient carefully and anytime he is in the bed and a chair are the wheelchair would need to have a alarm set so that we will know if he is attempting to get up. Revert to ASA 81mg PO BID at discharge for DVT ppx to complete 4weeks. Surgery on 12/17. All records, vitals, labs and medications were reviewed. No other issues per patient, nursing or therapy. Objective - Exam Narrative Exam: MUSCULOSKELETAL SPECIALTY EXAM CONSTITUTIONAL: Well developed, well nourished, appropriately groomed, Down syndrome, obese EENT: EOMI. Hearing intact to soft voice RESPIRATORY: Clear to auscultation bilaterally, no increased work of breathing CARDIOVASCULAR: Regular Rate/ Rhythm, no swelling, edema or tenderness in BUE or BLE. All extremities warm. GI: + bowel sounds, soft, NTTP, nondistended. INTEGUMENTARY: Normal, no lesion, rash, masses or bruising noted in extremities. Surgical wound RLE c/d/i MUSCULOSKELETAL: BUE and BLE normal without defect, crepitus, subluxation, effusion, arthritic changes or TTP. HIP arthritis with increased pain BUE 4+/5, good ROM, with normal tone. BLE 4+/5 good ROM, with normal tone NEURO: CN 2-12 grossly intact. Sensation intact in all extremities. No tremor noted in 4 extremities. POSTURE and GAIT: Sitting posture good. Balance appears reasonable. Gait slowed but reasonable. Stops and looks around every few steps typically. Does not appear severely antalgic. PSYCH: Alert, decreased verbal communication secondary to Down syndrome, affect appears normal. Cognitive delay due to Down syndrome, decreased command following. - Constitutional Vitals: Vital Signs - 12hr 12/31/18 12/31/18 12/31/18 05:16 08:00 08:05 Temperature 36.8 C 36.7 C 36.7 C Pulse Rate 97 H 95 H Respiratory 20 18 18 Rate Blood Pressure 100/48 Blood Pressure 93/55 [Right] O2 Sat by Pulse 91 95 Oximetry - Allied health notes Allied health notes reviewed: nursing, PT, OT FIMS assessment as documented by PT/OT/ST: Locomotion- walk/wheelchair Ambulation Distance 17 Eating Eating FIM Score 4. 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 Has progressed and failed other more conservative efforts to control his pain as well as progressive degenerative changes and is to undergo staged total hip replacements starting with the right which is been done this hospitalization. Arthritis left hip: Continues and does cause pain. We'll continue pain control as well as therapy to improve functional transfers and ambulation until he can undergo second stage of bilateral total hip arthroplasty. Gout: Continue medication monitor for any signs of acute flareup and treat accordingly. s/p Right total hip replacement: Continue pain control and DVT prophylaxis. Monitor wounds for any signs of infection. Dressing changes as ordered and when necessary. Continue therapy to improve the ability to ambulate with existing arthritis and left hip and new total hip arthroplasty on right. Weightbearing as tolerated. Posterior hip precautions Downs Syndrome: Continue working with patient regarding medication issues. Condition complicates care and carry over. Patiently continue to guide patient to understand precautions and exercises to improve functional gain. Z73.6 ADL dysfunction: OT will work on improving ability to perform ADLs (including assistive devices) to increase independence and decrease caregiver burden and improve functional transfers and mobility training. R26.2 Difficulty walking: PT will work on gait training and proper use of assistive devices and advance as appropriate to use of stairs and outside ambulation on uneven surfaces. R26.81 Unsteadiness on feet: PT will work on improving static and dynamic sitting and standing balance as well as proper use of assistive devices to decrease risk of falls. R26.89 Abnormality of gait: PT will work to improve safety and efficiency of gait through neuromotor training and gait training along with instruction on proper use of assistive devices. M62.81 Muscle weakness: PT & OT will work on strengthening exercises to improve functional strength including mixture of closed and open kinetic chain exercises . R53.81 Debility: PT & OT will work on improving overall functional status to improve participation with ADLs, mobility and social involvement. R53.83 Fatigue: PT & OT will work on improving endurance through aerobic exercises and therapeutic activity while monitoring patients tolerance for activity and vital signs as needed. DVT ppx: lovenox while in house and revert to ASA 81mg BID for total x4wks Pain: Continue physical modalities in therapy and pain medications as needed to achieve functional pain control. Decrease scheduled tramadol dose Sleep: Monitor and address as needed. Schedule trazodone Bowel: Monitor and address as needed. Schedule Miralax with appropriate hold order Appetite: Monitor and address as needed. Discharge planning: Pending therapy progress and care plan meeting. Will continue discussion with therapy team, SW, patient and family. Look to discharge on Friday 01/05 Restrictions/ Precautions: Falls, posterior hip precautions, cognitive delay secondary to Down syndrome WB status: Weightbearing as tolerated Functional Hx: ADLs: Independent Cognition: Independent Mobility: No AD Barriers to Discharge: Decreased mobility and ability to perform self care, balance deficits, weakness Estimated Length of Stay: 10-14 days Discharge Destination: Home with family
[2018-12-31] MEDS: traZODone 50 MG TAB PO SCH (21:45)
[2019-01-01 06:54] LABS: Hematocrit 33.6 % (35.5-45.6); Hemoglobin 11.2 gm/dl (11.8-15.2); Mean Corpuscular HGB Conc 33 % (32-34); Mean Corpuscular Volume 103 fl (84-94); Platelet Count 513 K/mm3 (140-440); Red Blood Count 3.28 M/mm3 (3.65-5.03); Red Cell Distribution Width 13.9 % (13.2-15.2)
[2019-01-01] MEDS: ENOXAPARIN 40 MG/0.4 ML INJ SUB-Q SCH (08:31)
[2019-01-01] MEDS: POLYETHYLENE GLYCOL 3350 17 GM POWDER PO SCH (08:31)
[2019-01-01] MEDS: allopurinoL 100 MG TAB PO SCH (08:32)
[2019-01-01] MEDS: ASPIRIN EC 81 MG TAB PO SCH (08:32)
[2019-01-01] MEDS: traMADol 50 MG TAB PO SCH ×3 (08:32→20:33)
--- NOTE | 2019-01-01 10:16 | Progress Note ---
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 Due to the congenital defect along with degenerative joint disease patient developed worsening symptoms and has tried and failed other more conservative therapies to alleviate the pain and improve his functional ability to ambulate and perform ADLs. Outside XR showed severe degenerative disease of bilateral hips. He was evaluated for further surgical intervention and underwent a right total hip arthroplasty. He continues to have severe degenerative disease in the left hip which impairs his functional mobility and causes significant pain. Due to Down syndrome he is having a difficult time with following his posterior hip precautions as well as with retaining and following through with training. Previously he was going to an adult care center on a daily basis. Father states he has reduced his mobility and takes longer to walk places than he did in the past (likely due to pain). He was checking his GLU in the AM. Will obtain A1c and start monitoring / carb control diet if needed. Patient observed in therapy and appeared to be limited by pain. Due to communication issue and pain mir ance he has not asked for medication. Will schedule tramadol for pain control at breakfast and lunch. Will need to be persistent to ensure that he understands the correct form for exercises during therapy and pay close attention to cues of increased pain. Placement for acute rehab more appropriate than SNF due to increased need for monitoring patient and and increased amount of work for therapeutic gain which can be better accomplished in this setting than a lesser setting with a lower level of monitoring and staff. With continued care and pain control, we should be able to help him return closer to his premorbid condition and improve function. Patient is participating at times in therapy and making slow progress. Taking rest breaks as needed. +BM. Denies palpitations, dyspnea, cough, N/V, weakness. Pain seems fairly well controlled. Patient is not obtunded but does appear drowsy at times. Participating with therapy this morning and doing fairly well. Was able to ambulate from the therapy gym back to his room which is greater than 150 feet. He did take multiple rest stops and needed to be cued to stand up straight and not lean too far forward but overall did fairly well. Discussed with the father that he will be discharged coming up on Thursday. We do need to get him on stairs prior to that as they have a second floor in the house where the bathroom and bedrooms are located. No other issues from nursing. Encouraged him to participate in therapy. Patient refusing to get into bed and remains in recliner. Reminded nursing that we absolutely need to watch the patient carefully and anytime he is in the bed and a chair are the wheelchair would need to have a alarm set so that we will know if he is attempting to get up. Patient has a sitter. Checking labs for anemia, hemoglobin slightly decreased again today but still in a reasonable range considering hip replacement. Revert to ASA 81mg PO BID at discharge for DVT ppx to complete 4weeks. Surgery on 12/17. All records, vitals, labs and medications were reviewed. No other issues per patient, nursing or therapy. Objective - Exam Narrative Exam: MUSCULOSKELETAL SPECIALTY EXAM CONSTITUTIONAL: Well developed, well nourished, appropriately groomed, Down syndrome, obese EENT: EOMI. Hearing intact to soft voice RESPIRATORY: Clear to auscultation bilaterally, no increased work of breathing CARDIOVASCULAR: Regular Rate/ Rhythm, no swelling, edema or tenderness in BUE or BLE. All extremities warm. GI: + bowel sounds, soft, NTTP, nondistended. INTEGUMENTARY: Normal, no lesion, rash, masses or bruising noted in extremities. Surgical wound RLE c/d/i MUSCULOSKELETAL: BUE and BLE normal without defect, crepitus, subluxation, effusion, arthritic changes or TTP. HIP arthritis with increased pain BUE 4+/5, good ROM, with normal tone. BLE 4+/5 good ROM, with normal tone NEURO: CN 2-12 grossly intact. Sensation intact in all extremities. No tremor noted in 4 extremities. POSTURE and GAIT: Sitting posture good. Balance appears reasonable. Gait slowed but reasonable. Stops and looks around every few steps typically. Does not appear severely antalgic. PSYCH: Alert, decreased verbal communication secondary to Down syndrome, affect appears normal. Cognitive delay due to Down syndrome, decreased command following. - Constitutional Vitals: Vital Signs - 12hr 12/31/18 01/01/19 01/01/19 23:33 06:32 08:25 Temperature 36.2 C L 36.7 C 36.7 C Pulse Rate 101 H 98 H Respiratory 17 18 Rate Blood Pressure 117/58 Blood Pressure 144/74 [Right] O2 Sat by Pulse 94 94 Oximetry - Allied health notes Allied health notes reviewed: nursing, PT, OT FIMS assessment as documented by PT/OT/ST: Transfers Mode of Locomotion: Walking Patient transferred to: Shower Shower Transfers FIM Score 4. Minimal Assistance (Patient = 75% or more. Needs touching.) Locomotion- walk/wheelchair Ambulation Distance 17 Eating Eating FIM Score 4. Minimal Assistance (Patient = 75% or more) Dressing-Upper body Patient retrieves clothing No items: Upper Body Dressing FIM Score 5. Supv./Set-Up (Etta sets out clothes or applies pros./orth.) Dressing-lower body Lower Body Dressing Device Branch Rental Manager/Stick,Sock Aid Patient retrieves clothing No items: Lower Body Dressing FIM Score 3. 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 Has progressed and failed other more conservative efforts to control his pain as well as progressive degenerative changes and is to undergo staged total hip replacements starting with the right which is been done this hospitalization. Arthritis left hip: Continues and does cause pain. We'll continue pain control as well as therapy to improve functional transfers and ambulation until he can undergo second stage of bilateral total hip arthroplasty. Gout: Continue medication monitor for any signs of acute flareup and treat accordingly. s/p Right total hip replacement: Continue pain control and DVT prophylaxis. Monitor wounds for any signs of infection. Dressing changes as ordered and when necessary. Continue therapy to improve the ability to ambulate with existing arthritis and left hip and new total hip arthroplasty on right. Weightbearing as tolerated. Posterior hip precautions Downs Syndrome: Continue working with patient regarding medication issues. Condition complicates care and carry over. Patiently continue to guide patient to understand precautions and exercises to improve functional gain. Anemia: Continue to monitor hemoglobin. Checking vitamin B12, iron, ferritin and folate. Macrocytic and will likely need to replace B12. Z73.6 ADL dysfunction: OT will work on improving ability to perform ADLs (including assistive devices) to increase independence and decrease caregiver burden and improve functional transfers and mobility training. R26.2 Difficulty walking: PT will work on gait training and proper use of assistive devices and advance as appropriate to use of stairs and outside ambulation on uneven surfaces. R26.81 Unsteadiness on feet: PT will work on improving static and dynamic sitting and standing balance as well as proper use of assistive devices to decrease risk of falls. R26.89 Abnormality of gait: PT will work to improve safety and efficiency of gait through neuromotor training and gait training along with instruction on proper use of assistive devices. M62.81 Muscle weakness: PT & OT will work on strengthening exercises to improve functional strength including mixture of closed and open kinetic chain exer cises. R53.81 Debility: PT & OT will work on improving overall functional status to improve participation with ADLs, mobility and social involvement. R53.83 Fatigue: PT & OT will work on improving endurance through aerobic exercises and therapeutic activity while monitoring patients tolerance for a ctivity and vital signs as needed. DVT ppx: lovenox while in house and revert to ASA 81mg BID for total x4wks Pain: Continue physical modalities in therapy and pain medications as needed to achieve functional pain control. Decrease scheduled tramadol dose Sleep: Monitor and address as needed. Schedule trazodone Bowel: Monitor and address as needed. Schedule Miralax with appropriate hold order Appetite: Monitor and address as needed. Discharge planning: Pending therapy progress and care plan meeting. Will continue discussion with therapy team, SW, patient and family. Look to discharge on Friday 01/05 Restrictions/ Precautions: Falls, posterior hip precautions, cognitive delay secondary to Down syndrome WB status: Weightbearing as tolerated Functional Hx: ADLs: Independent Cognition: Independent Mobility: No AD Barriers to Discharge: Decreased mobility and ability to perform self care, balance deficits, weakness Estimated Length of Stay: 10-14 days Discharge Destination: Home with family
[2019-01-01 16:46] LABS: Iron 29 ug/dL (49-181); Total Iron Binding Capacity 218 mcg/dL (250-450)
[2019-01-01] MEDS: traZODone 50 MG TAB PO SCH (20:33)
[2019-01-01] MEDS: FERROUS SULFATE 325 MG TAB PO SCH (21:54)
[2019-01-02] MEDS: traMADol 50 MG TAB PO SCH ×3 (11:09→22:01)
[2019-01-02] MEDS: ENOXAPARIN 40 MG/0.4 ML INJ SUB-Q SCH (11:09)
[2019-01-02] MEDS: FOLIC ACID 1 MG TAB PO SCH (11:09)
[2019-01-02] MEDS: FERROUS SULFATE 325 MG TAB PO SCH ×2 (11:10→22:04)
[2019-01-02] MEDS: allopurinoL 100 MG TAB PO SCH (11:10)
[2019-01-02] MEDS: ASPIRIN EC 81 MG TAB PO SCH (11:10)
[2019-01-02] MEDS: MULTIVITAMINS ,THERAPEUTIC TAB PO SCH (11:11)
[2019-01-02] MEDS: POLYETHYLENE GLYCOL 3350 17 GM POWDER PO SCH (11:11)
[2019-01-02] MEDS: traZODone 50 MG TAB PO SCH (22:01)
[2019-01-03 07:51] LABS: Hematocrit 32.9 % (35.5-45.6); Mean Corpuscular HGB Conc 34 % (32-34); Mean Corpuscular Volume 103 fl (84-94); Platelet Count 442 K/mm3 (140-440); Red Cell Distribution Width 14.2 % (13.2-15.2)
[2019-01-03] MEDS: traMADol 50 MG TAB PO SCH ×3 (08:57→23:03)
--- NOTE | 2019-01-03 09:10 | Progress Note ---
Subjective Date of service: 01/03/19 Principal diagnosis: Congenital deformity of bilateral hips in a patient with Down syndrome Interval history: 38-year-old male with Down syndrome who has developmental dysplasia of the bilateral hips and underwent hip pinning procedure in the past. Due to the congenital defect along with degenerative joint disease patient developed worsening symptoms and has tried and failed other more conservative therapies to alleviate the pain and improve his functional ability to ambulate and perform ADLs. Outside XR showed severe degenerative disease of bilateral hips. He was evaluated for further surgical intervention and underwent a right total hip arthroplasty. He continues to have severe degenerative disease in the left hip which impairs his functional mobility and causes significant pain. Due to Down syndrome he is having a difficult time with following his posterior hip precautions as well as with retaining and following through with training. Previously he was going to an adult care center on a daily basis. Father states he has reduced his mobility and takes longer to walk places than he did in the past (likely due to pain). He was checking his GLU in the AM. Will obtain A1c and start monitoring / carb control diet if needed. Patient observed in therapy and appeared to be limited by pain. Due to communication issue and pain mir ance he has not asked for medication. Will schedule tramadol for pain control at breakfast and lunch. Will need to be persistent to ensure that he understands the correct form for exercises during therapy and pay close attention to cues of increased pain. Placement for acute rehab more appropriate than SNF due to increased need for monitoring patient and and increased amount of work for therapeutic gain which can be better accomplished in this setting than a lesser setting with a lower level of monitoring and staff. With continued care and pain control, we should be able to help him return closer to his premorbid condition and improve function. Patient is participating at times in therapy and making progress. Taking rest breaks as needed. +BM. Denies palpitations, dyspnea, cough, N/V, weakness. Pain seems fairly well controlled. Patient does appear drowsy at times. Participating with therapy this morning and doing fairly well. We do need to get him on stairs prior to that as they have a second floor in the house where the bathroom and bedrooms are located. No other issues from nursing. Encouraged him to participate in therapy. Patient refusing to get into bed and remains in recliner. Reminded nursing that we absolutely need to watch the patient carefully and anytime he is in the bed and a chair are the wheelchair would need to have a alarm set so that we will know if he is attempting to get up. Patient has a sitter. Iron, Folate and MV started after labs obtained Thursday. Slight swelling in RLE, low suspicion for DVT (on ASA and Lovenox), but will check venous doppler. Revert to ASA 81mg PO BID at discharge for DVT ppx to complete 4weeks. Surgery on 12/17. All records, vitals, labs and medications were reviewed. No other issues per patient, nursing or therapy. Objective - Exam Narrative Exam: MUSCULOSKELETAL SPECIALTY EXAM CONSTITUTIONAL: Well developed, well nourished, appropriately groomed, Down syndrome, obese EENT: EOMI. Hearing intact to soft voice RESPIRATORY: Clear to auscultation bilaterally, no increased work of breathing CARDIOVASCULAR: Slight swelling in R lower extremity. Regular Rate/ Rhythm, no swelling, edema or tenderness in BUE or BLE. All extremities warm. GI: + bowel sounds, soft, NTTP, nondistended. INTEGUMENTARY: Normal, no lesion, rash, masses or bruising noted in extremities. Surgical wound RLE c/d/i MUSCULOSKELETAL: BUE and BLE normal without defect, crepitus, subluxation, effusion, arthritic changes or TTP. HIP arthritis with increased pain BUE 4+/5, good ROM, with normal tone. BLE 4+/5 good ROM, with normal tone NEURO: CN 2-12 grossly intact. Sensation intact in all extremities. No tremor noted in 4 extremities. POSTURE and GAIT: Sitting posture good. Balance appears reasonable. Gait slowed but reasonable. Stops and looks around every few steps typically. Does not appear severely antalgic. PSYCH: Alert, decreased verbal communication secondary to Down syndrome, affect appears normal. Cognitive delay due to Down syndrome, decreased command following. - Constitutional Vitals: Vital Signs - 12hr 01/03/19 01/03/19 05:10 08:23 Temperature 36.8 C 36.6 C Pulse Rate 75 103 H Respiratory 19 18 Rate Blood Pressure 117/50 Blood Pressure 118/66 [Right] O2 Sat by Pulse 97 95 Oximetry - Allied health notes Allied health notes reviewed: nursing, PT, OT FIMS assessment as documented by PT/OT/ST: Transfers Mode of Locomotion: Walking Patient transferred to: Shower Shower Transfers FIM Score 4. Minimal Assistance (Patient = 75% or more. Needs touching.) Locomotion- walk/wheelchair Ambulation Distance 17 Eating Eating FIM Score 4. Minimal Assistance (Patient = 75% or more) Dressing-Upper body Patient retrieves clothing No items: Upper Body Dressing FIM Score 5. Supv./Set-Up ([place] sets out clothes or applies pros./orth.) Dressing-lower body Lower Body Dressing Device Ply Bander/Stick,Sock Aid Patient retrieves clothing No items: Lower Body Dressing FIM Score 3. 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 Has progressed and failed other more conservative efforts to control his pain as well as progressive degenerative changes and is to undergo staged total hip replacements starting with the right which is been done this hospitalization. Arthritis left hip: Continues and does cause pain. We'll continue pain control as well as therapy to improve functional transfers and ambulation until he can undergo second stage of bilateral total hip arthroplasty. Gout: Continue medication monitor for any signs of acute flareup and treat a ccordingly. s/p Right total hip replacement: Continue pain control and DVT prophylaxis. Monitor wounds for any signs of infection. Dressing changes as ordered and when necessary. Continue therapy to improve the ability to ambulate with existing arthritis and left hip and new total hip arthroplasty on right. Weightbearing as tolerated. Posterior hip precautions Downs Syndrome: Continue working with patient regarding medication issues. Condition complicates care and carry over. Patiently continue to guide patient to understand precautions and exercises to improve functional gain. Anemia: Continue to monitor hemoglobin. Checking vitamin B12, iron, ferritin and folate. Macrocytic and will likely need to replace B12. Z73.6 ADL dysfunction: OT will work on improving ability to perform ADLs (including assistive devices) to increase independence and decrease caregiver burden and improve functional transfers and mobility training. R26.2 Difficulty walking: PT will work on gait training and proper use of assistive devices and advance as appropriate to use of stairs and outside ambulation on uneven surfaces. R26.81 Unsteadiness on feet: PT will work on improving static and dynamic si tting and standing balance as well as proper use of assistive devices to decrease risk of falls. R26.89 Abnormality of gait: PT will work to improve safety and efficiency of gait through neuromotor training and gait training along with instruction on proper use of assistive devices. M62.81 Muscle weakness: PT & OT will work on strengthening exercises to improve functional strength including mixture of closed and open kinetic chain exercises. R53.81 Debility: PT & OT will work on improving overall functional status to improve participation with ADLs, mobility and social involvement. R53.83 Fatigue: PT & OT will work on improving endurance through aerobic exercises and therapeutic activity while monitoring patients tolerance for activity and vital signs as needed. RLE Swelling: likely post surgical and dependent related- refusing to get into bed to lie flat and is sleeping in recliner. Check Venous Doppler to ensure no DVT. DVT ppx: lovenox while in house and revert to ASA 81mg BID for total x4wks Pain: Continue physical modalities in therapy and pain medications as needed to achieve functional pain control. Decrease scheduled tramadol dose Sleep: Monitor and address as needed. Schedule trazodone Bowel: Monitor and address as needed. Schedule Miralax with appropriate hold o rder Appetite: Monitor and address as needed. Discharge planning: Pending therapy progress and care plan meeting. Will continue discussion with therapy team, SW, patient and family. Look to discharge on Friday 01/05 Restrictions/ Precautions: Falls, posterior hip precautions, cognitive delay secondary to Down syndrome WB status: Weightbearing as tolerated Functional Hx: ADLs: Independent Cognition: Independent Mobility: No AD Barriers to Discharge: Decreased mobility and ability to perform self care, balance deficits, weakness Estimated Length of Stay: 10-14 days Discharge Destination: Home with family
[2019-01-03] MEDS: ENOXAPARIN 40 MG/0.4 ML INJ SUB-Q SCH (11:29)
[2019-01-03] MEDS: allopurinoL 100 MG TAB PO SCH (11:30)
[2019-01-03] MEDS: FERROUS SULFATE 325 MG TAB PO SCH ×2 (11:30→22:59)
[2019-01-03] MEDS: FOLIC ACID 1 MG TAB PO SCH (11:30)
[2019-01-03] MEDS: MULTIVITAMINS ,THERAPEUTIC TAB PO SCH (11:31)
[2019-01-03] MEDS: ASPIRIN EC 81 MG TAB PO SCH (11:35)
[2019-01-03] MEDS: POLYETHYLENE GLYCOL 3350 17 GM POWDER PO SCH (13:31)
--- NOTE | 2019-01-03 15:25 | Vascular Lab Report ---
DUPLEX DOPPLER LOWER EXTREMITY VEINS, RIGHT INDICATION: Right leg swelling status post total hip arthroplasty. TECHNIQUE: Duplex doppler imaging was performed through the veins of the right lower extremity using venous comp ression and other maneuvers. COMPARISON: None available. FINDINGS: Common femoral vein: Negative. Superficial femoral vein: Negative. Popliteal vein: Negative. Calf veins: Negative. Additional findings: There is no evidence of a popliteal cyst, hematoma or other significant abnormal ity. IMPRESSION: No sonographic evidence for DVT in the right lower extremity. Signer Name: Jimmy Metz MD Signed: 01/03/2019 3:20 PM Workstation Name: [id number]
[2019-01-03] MEDS: traZODone 50 MG TAB PO SCH (22:59)
[2019-01-04] MEDS: ENOXAPARIN 40 MG/0.4 ML INJ SUB-Q SCH (08:53)
[2019-01-04] MEDS: POLYETHYLENE GLYCOL 3350 17 GM POWDER PO SCH (08:53)
[2019-01-04] MEDS: ASPIRIN EC 81 MG TAB PO SCH (08:53)
[2019-01-04] MEDS: MULTIVITAMINS ,THERAPEUTIC TAB PO SCH (08:53)
[2019-01-04] MEDS: FOLIC ACID 1 MG TAB PO SCH (08:54)
[2019-01-04] MEDS: allopurinoL 100 MG TAB PO SCH (08:54)
[2019-01-04] MEDS: FERROUS SULFATE 325 MG TAB PO SCH ×2 (08:54→21:23)
[2019-01-04] MEDS: traMADol 50 MG TAB PO SCH ×3 (08:54→21:23)
--- NOTE | 2019-01-04 13:21 | Progress Note ---
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 Due to the congenital defect along with degenerative joint disease patient developed worsening symptoms and has tried and failed other more conservative therapies to alleviate the pain and improve his functional ability to ambulate and perform ADLs. Outside XR showed severe degenerative disease of bilateral hips. He was evaluated for further surgical intervention and underwent a right total hip arthroplasty. He continues to have severe degenerative disease in the left hip which impairs his functional mobility and causes significant pain. Due to Down syndrome he is having a difficult time with following his posterior hip precautions as well as with retaining and following through with training. Previously he was going to an adult care center on a daily basis. Father states he has reduced his mobility and takes longer to walk places than he did in the past (likely due to pain). He was checking his GLU in the AM. Will obtain A1c and start monitoring / carb control diet if needed. Patient observed in therapy and appeared to be limited by pain. Due to communication issue and pain mir ance he has not asked for medication. Will schedule tramadol for pain control at breakfast and lunch. Will need to be persistent to ensure that he understands the correct form for exercises during therapy and pay close attention to cues of increased pain. Placement for acute rehab more appropriate than SNF due to increased need for monitoring patient and and increased amount of work for therapeutic gain which can be better accomplished in this setting than a lesser setting with a lower level of monitoring and staff. With continued care and pain control, we should be able to help him return closer to his premorbid condition and improve function. Patient is participating at times in therapy and making progress. Taking rest breaks as needed. -BM. Denies palpitations, dyspnea, cough, N/V, weakness. Pain seems fairly well controlled. Participating with therapy this morning and did very well. Able to negotiate stairs better than before surgery per the dad. No other issues from nursing. Encouraged him to participate in therapy. Will do car transfers tomorrow prior to discharge. Patient refusing to get into bed and remains in recliner. Reminded nursing that we absolutely need to watch the patient carefully and anytime he is in the bed and a chair are the wheelchair would need to have a alarm set so that we will know if he is attempting to get up. Patient has a sitter. Slight swelling in RLE, low suspicion for DVT (on ASA and Lovenox), but will check venous doppler - NEG for DVT. Decreased ability to follow posterior hip precautions but has not done anything to injure the limb. Revert to ASA 81mg PO BID at discharge for DVT ppx to complete 4weeks. Surgery on 12/17. All records, vitals, labs and medications were reviewed. No other issues per patient, nursing or therapy. Objective - Exam Narrative Exam: MUSCULOSKELETAL SPECIALTY EXAM CONSTITUTIONAL: Well developed, well nourished, appropriately groomed, Down syndrome, obese EENT: EOMI. Hearing intact to soft voice RESPIRATORY: Clear to auscultation bilaterally, no increased work of breathing CARDIOVASCULAR: Slight swelling in R lower extremity. Regular Rate/ Rhythm, no swelling, edema or tenderness in BUE or BLE. All extremities warm. GI: + bowel sounds, soft, NTTP, nondistended. INTEGUMENTARY: Normal, no lesion, rash, masses or bruising noted in extremities. Surgical wound RLE c/d/i MUSCULOSKELETAL: BUE and BLE normal without defect, crepitus, subluxation, effusion, arthritic changes or TTP. HIP arthritis with increased pain BUE 4+/5, good ROM, with normal tone. BLE 4+/5 good ROM, with normal tone NEURO: CN 2-12 grossly intact. Sensation intact in all extremities. No tremor noted in 4 extremities. POSTURE and GAIT: Sitting posture good. Balance appears reasonable. Gait slowed but reasonable. Stops and looks around every few steps typically. Does not appear severely antalgic. PSYCH: Alert, decreased verbal communication secondary to Down syndrome, affect appears normal. Cognitive delay due to Down syndrome, decreased command following. - Constitutional Vitals: Vital Signs - 12hr 01/04/19 07:40 Temperature 36.7 C Pulse Rate 74 Respiratory 18 Rate Blood Pressure 94/61 [Right] O2 Sat by Pulse 95 Oximetry - Allied health notes Allied health notes reviewed: nursing, PT, OT FIMS assessment as documented by PT/OT/ST: Toileting Toileting Device Commode over Toilet Patient able to: Adjust clothes before,Clean self Patient able to perform: 2/3 (67%) Toileting FIM Score 3. Moderate Assistance (Patient = 50% or more. Some lifting.) Transfers Mode of Locomotion: Walking Toilet Transfers FIM Score 5. Supervision (Needs supervision or cueing.) Patient transferred to: Shower Shower Transfers FIM Score 5. Supervision (Needs supv. or set-up with device.) Locomotion- walk/wheelchair Ambulation Distance 17 Eating Eating FIM Score 4. Minimal Assistance (Patient = 75% or more) Dressing-Upper body Patient retrieves clothing No items: Upper Body Dressing FIM Score 5. Supv./Set-Up ([place] sets out clothes or applies pros./orth.) Dressing-lower body Lower Body Dressing Device Air Bag Builder/Stick,Sock Aid Patient retrieves clothing No items: Lower Body Dressing FIM Score 4. Minimal Assistance (Patient = 75% or more. 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 Has progressed and failed other more conservative efforts to control his pain as well as progressive degenerative changes and is to undergo staged total hip replacements starting with the right which is been done this hospitalization. Arthritis left hip: Continues and does cause pain. We'll continue pain control as well as therapy to improve functional transfers and ambulation until he can undergo second stage of bilateral total hip arthroplasty. Gout: Continue medication monitor for any signs of acute flareup and treat accordingly. s/p Right total hip replacement: Continue pain control and DVT prophylaxis. Monitor wounds for any signs of infection. Dressing changes as ordered and when necessary. Continue therapy to improve the ability to ambulate with existing arthritis and left hip and new total hip arthroplasty on right. Weightbearing as tolerated. Posterior hip precautions Downs Syndrome: Continue working with patient regarding medication issues. Condition complicates care and carry over. Patiently continue to guide patient to understand precautions and exercises to improve functional gain. Anemia: Continue to monitor hemoglobin. Checking vitamin B12, iron, ferritin and folate. Macrocytic and will likely need to replace B12. Z73.6 ADL dysfunction: OT will work on improving ability to perform ADLs (including assistive devices) to increase independence and decrease caregiver burden and improve functional transfers and mobility training. R26.2 Difficulty walking: PT will work on gait training and proper use of assistive devices and advance as appropriate to use of stairs and outside ambulation on uneven surfaces. R26.81 Unsteadiness on feet: PT will work on improving static and dynamic sitting and standing balance as well as proper use of assistive devices to decrease risk of falls. R26.89 Abnormality of gait: PT will work to improve safety and efficiency of gait through neuromotor training and gait training along with instruction on proper use of assistive devices. M62.81 Muscle weakness: PT & OT will work on strengthening exercises to improve functional strength including mixture of closed and open kinetic chain exercises. R53.81 Debility: PT & OT will work on improving overall functional status to improve participation with ADLs, mobility and social involvement. R53.83 Fatigue: PT & OT will work on improving endurance through aerobic ex ercises and therapeutic activity while monitoring patients tolerance for activity and vital signs as needed. RLE Swelling: likely post surgical and dependent related- refusing to get into bed to lie flat and is sleeping in recliner. Venous Doppler NEG for DVT. DVT ppx: lovenox while in house and revert to ASA 81mg BID for total x4wks Pain: Continue physical modalities in therapy and pain medications as needed to achieve functional pain control. Decrease scheduled tramadol dose Sleep: Monitor and address as needed. Schedule trazodone Bowel: Monitor and address as needed. Schedule Miralax with appropriate hold order Appetite: Monitor and address as needed. Discharge planning: Pending therapy progress and care plan meeting. Will continue discussion with therapy team, SW, patient and family. Look to discharge on Friday 01/05 with HH, RW and 3 in 1 Restrictions/ Precautions: Falls, posterior hip precautions, cognitive delay secondary to Down syndrome WB status: Weightbearing as tolerated Functional Hx: ADLs: Independent Cognition: Independent Mobility: No AD Barriers to Discharge: Decreased mobility and ability to perform self care, balance deficits, weakness Estimated Length of Stay: 10-14 days Discharge Destination: Home with family
[2019-01-04] MEDS: traZODone 50 MG TAB PO SCH (21:23)
[2019-01-05] MEDS: POLYETHYLENE GLYCOL 3350 17 GM POWDER PO SCH (11:46)
[2019-01-05] MEDS: ENOXAPARIN 40 MG/0.4 ML INJ SUB-Q SCH (11:46)
[2019-01-05] MEDS: FOLIC ACID 1 MG TAB PO SCH (11:46)
[2019-01-05] MEDS: traMADol 50 MG TAB PO SCH (11:47)
[2019-01-05] MEDS: ASPIRIN EC 81 MG TAB PO SCH (11:47)
[2019-01-05] MEDS: FERROUS SULFATE 325 MG TAB PO SCH (11:47)
[2019-01-05] MEDS: MULTIVITAMINS ,THERAPEUTIC TAB PO SCH (11:47)
[2019-01-05] MEDS: allopurinoL 100 MG TAB PO SCH (11:48)
--- NOTE | 2019-01-05 15:08 | Discharge Summary ---
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 Due to the congenital defect along with degenerative joint disease patient developed worsening symptoms and has tried and failed other more conservative therapies to alleviate the pain and improve his functional ability to ambulate and perform ADLs. Outside XR showed severe degenerative disease of bilateral hips. He was evaluated for further surgical intervention and underwent a right total hip arthroplasty. He continues to have severe degenerative disease in the left hip which impairs his functional mobility and causes significant pain. Due to Down syndrome he is having a difficult time with following his posterior hip prec autions as well as with retaining and following through with training. Previously he was going to an adult care center on a daily basis. Father states he has reduced his mobility and takes longer to walk places than he did in the past (likely due to pain). He was checking his GLU in the AM. Will obtain A1c and start monitoring / carb control diet if needed. Patient observed in therapy and appeared to be limited by pain. Due to communication issue and pain tolerance he has not asked for medication. Will schedule tramadol for pain control at breakfast and lunch. Will need to be persistent to ensure that he understands the correct form for exercises during therapy and pay close attention to cues of increased pain. Placement for acute rehab more appropriate than SNF due to increased need for monitoring patient and and increased amount of work for therapeutic gain which can be better accomplished in this setting than a lesser setting with a lower level of monitoring and staff. With continued care and pain control, we should be able to help him return closer to his premorbid condition and improve function. Patient progress with therapy fairly well although this was a slower process in the beginning. He was overall fairly stable medically. At time of discharge he was able to perform shower and bed transfers with supervision, toilet transfers modified independent, bathing and toileting with min assist, dressing with supervision. He was able to negotiate steps and stairs with min assist to supervision level, he was ambulating over 150 feet with a rolling walker with contact guard to supervision. Patient underwent car transfers and did well. Family underwent family training. Family was initially a little concerned about going home today. Spoke with the family at length (45mins) including the mother and father and offered to extend his admission until Thursday however they both declined and after discussing the issue further they feel comfortable with taking him home as his. The father did state that he seems to be doing better utilizing stairs now than he was prior to the surgery. We will have home health come out and evaluate Eric for nursing care as well as physical therapy and occupational therapy. He has a follow-up with his surgeon tomorrow. While he has been on therapy he has had difficulty with understanding the posterior hip precautions however he has not necessarily violated them either. Hopefully we can get him back to his bed at home for sleeping as he has been sleeping in a recliner ever since he's been here on rehabilitation. Uncertain as to why he will not get into the bed here. Due to sleeping in the recliner his right lower extremity is swollen. He has been on Lovenox and a low dose 81 mg aspirin since arrival and a Doppler of the right lower extremity was negative for DVT. We will convert him over to aspirin 81 mg twice a day to finish out his DVT prophylaxis period. I have explained to both the mother and father that this is very important to follow and if they have further questions to please contact his surgeon if they notice any further swelling or pain in the right leg. His hemoglobin was fairly stable but did drop to a low of 11.0. After the second decline I ordered an anemia workup and found that his iron and folate were decreased. We have started him on replacements for this and we'll send him home with [id number] iron pills as well as multivitamin to help him replenish his hemoglobin prior to his next surgery. Spent a total of 45 minutes with Eric and his parents discussing all issues concerning discharge home and his transition including issues to look for, working with home health, use of the walker and shower chair, supervision while using stairs, and the possibility of seeing if home health will assist with his transition back to his adult Center. Bathroom is located on the second floor of the home. This will not be safe at all times to utilize or access due to pain and a bedside commode (3 in 1) will be the safest option to avoid/reduce the risk of a fall and further injury. Eric still has difficulty with the left hip. Overall he did very well with rehabilitation and we hope to see him continue to improve going forward before undergoing his second hip replacement. He has a follow-up with surgery tomorrow and a follow-up with his PCP in the next couple of weeks. Disposition: [id number] HOME UNDER HOME [facility] Time spent for discharge: >45mins Core Measure Documentation - Palliative Care Palliative Care/ Comfort Measures: Not Applicable - Core Measures Any of the following diagnoses?: none Exam - Physical Exam Narrative exam: MUSCULOSKELETAL SPECIALTY EXAM CONSTITUTIONAL: Well developed, well nourished, appropriately groomed, Down syndrome, obese EENT: EOMI. Hearing intact to soft voice RESPIRATORY: Clear to auscultation bilaterally, no increased work of breathing CARDIOVASCULAR: Swelling in R lower extremity, otherwise, Regular Rate/ Rhythm, no swelling, edema or tenderness in BUE or BLE. All extremities warm. GI: + bowel sounds, soft, NTTP, nondistended. INTEGUMENTARY: Normal, no lesion, rash, masses or bruising noted in extremities. Surgical wound RLE c/d/i MUSCULOSKELETAL: BUE and BLE normal without defect, crepitus, subluxation, effusion, arthritic changes or TTP. HIP arthritis with increased pain BUE 4+/5, good ROM, with normal tone. BLE 4+/5 good ROM, with normal tone NEURO: CN 2-12 grossly intact. Sensation intact in all extremities. No tremor noted in 4 extremities. POSTURE and GAIT: Sitting posture good. Balance appears reasonable. Gait slowed but reasonable. Stops and looks around every few steps typically. Does not appear severely antalgic. PSYCH: Alert, decreased verbal communication secondary to Down syndrome, affect appears normal. Cognitive delay due to Down syndrome, decreased command following. - Constitutional Vitals: Temp Pulse Resp BP Pulse Ox 36.6 C 95 H 20 102/62 96 01/05/19 11:47 01/05/19 11:47 01/05/19 11:47 01/05/19 11:47 01/05/19 11:47 - Allied Health Allied health notes reviewed: nursing, PT, OT Plan Activity: advance as tolerated, up only with assistance, fall precautions, other (Posterior hip precautions) Weight Bearing Status: Weight Bear as Tolerated Diet: regular (Would rec low carb to reduce risk for diabetes) Wound: keep clean and dry Special Instructions: record blood sugar diary, physical therapy, occupational therapy, home health RN Durable Medical Equipment Needed Upon Discharge: Walker-Rolling, Bedside Commode Care Plan Goals: Discharge home with home health nursing, physical therapy, occupational therapy. Continue to monitor hemoglobin and blood glucose. Patient can be diet controlled at this point and possibly reduce his risk of diabetes however if he does not lose weight and change his diet he will likely need to be started on metformin in the near future. We'll send him home on blood building products for the next 30 days and attempt to improve his hemoglobin prior to his second stage of surgery. He should be monitored and supervised when up and moving around. Plan of Treatment: CBC, BMP at follow up with PCP Follow up with: PRIMARY CARE, [Primary Care Provider] - 7 Days Prescriptions: traZODone [Desyrel] 50 mg PO QHS #30 tablet Ferrous Sulfate [Feosol 325 MG tab] 325 mg PO BID #60 tablet Aspirin EC [Halfprin EC] 81 mg PO BID 14 Days #28 tablet Polyethylene Glycol 3350 [Miralax 3350] 17 gm PO QDAY 30 Days powd.pack Multivitamin Tab [Multiple Vitamin TAB (Theragran)] 1 each PO QDAY #30 tablet traMADol [Ultram 50 MG tab] 25 mg PO TID #45 tablet Allopurinol [Zyloprim] 100 mg PO QDAY #30 tablet
[2019-01-05 16:23] VITALS: BP 102/60
== END 2019-01-05 17:40 | disposition home health service (06) | DRG 554 ==
LOC: 3A 10:54 → UNDOADMIN 10:54 → 3B 17:27
PROVIDERS: ADMIT Physical Medicine & Rehabilitation; ATTEND Physical Medicine & Rehabilitation
DX: M16.0 Bilateral primary osteoarthritis of hip (principal); M10.9 Gout, unspecified; Z96.641 Presence of right artificial hip joint; R53.81 Other malaise; R26.89 Other abnormalities of gait and mobility; Q65.4 Congenital partial dislocation of hip, bilateral; Q90.9 Down syndrome, unspecified; Z82.49 Family history of ischemic heart disease and other diseases of the circulatory system; Z83.3 Family history of diabetes mellitus; Z79.899 Other long term (current) drug therapy
CPT/HCPCS: 36415; 73521; 80048; 80053; 82607; 82747; 82962; 83036; 83550; 85027; G0378; G0515; J1650